=== PATIENT | male | born 1965 | race Two or more races ===

== ENCOUNTER → 2023-06-08 10:34 | Outpatient (REF) | payer OTHER, SELFPAY ==
--- NOTE | 2023-06-08 10:48 | CA_ITS ---
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 There is mildly increased left ventricular wall thickness. The left ventricular systolic function is low normal. The visually estimated ejection fraction is between 50-55%. - The basal inferior and mid inferior segments are akinetic. - Normal right ventricular cavity size and systolic function. Findings Left Ventricle Normal left ventricular cavity size. There is mildly increased left ventricular wall thickness. The left ventricular systolic function is low normal. The visually estimated ejection fraction is between 50-55%. There is evidence of regional wall motion abnormalities. Diastolic function is normal for age. Wall Motion Rest Echo Findings The basal inferior and mid inferior segments are akinetic. Right Ventricle Normal right ventricular cavity size and systolic function. Atria The left atrium is normal in size. The right atrium is normal in size. Aortic Valve There is a normal trileaflet aortic valve. There is no aortic valve stenosis. There is no aortic valve regurgitation. Mitral Valve Normal mitral valve structure and function. There is trace mitral valve regurgitation. There is no mitral valve stenosis. Pulmonic Valve The pulmonic valve is normal. There is no pulmonic valve regurgitation. Tricuspid Valve Normal tricuspid valve structure. There is no tricuspid valve regurgitation. Normal right atrial pressure. There is no evidence of pulmonary hypertension. Great Vessels All visible segments of the aorta are normal in size. The visualized portions of the pulmonary artery and branches are normal. Venous The inferior vena cava is normal in size and collapses greater than 50% with inspiration. Pericardium/Pleural There is no evidence of pericardial effusion. Prior Study Comparison No prior study available for comparison. Measurements 2D Linear Measurements IVSd: 1.12 0.6-0.9/0.6-1.0 cm LVIDd: 4.63 3.9-5.3/4.2-5.9 cm LVIDd Index: 2.24 2.4-3.2/2.2-3.1 cm/m2 LVIDs: 3.45 2.0-3.6 cm LVPWd: 1.19 0.7-1.1 cm LA Diam: 3.20 2.7-3.8/3.0-4.0 cm LAIDs Index: 1.55 1.5-2.3 cm/m2 LV Mass: 244.40 67-162/88-224 g LV Mass Index: 118.07 43-95/49-115 g/m2 LVOT Diam: 2.20 3.0+(-)1.3 cm 2D Systolic Function EF 4C: 42.90 >55% EF 2C: 40.10 >55% EF BiP: 42.70 >55% Mitral Valve MV Pk E: 0.48 MV PK A: 0.66 MV Decel Time: 357.00 E/A: 0.70 E'Lateral: 6.85 E'Medial: 6.42 E/E' Med: 7.50 E/E' Lat: 7.00 PHT: 105.00 MVA PHT: 2.10 Decel [place]: 1.34 Aortic Valve AoV Pk Ashutosh: 1.05 AoV Mn Ashutosh: 0.85 AoV VTI: 0.21 AoV Pk Grad: 4.00 Aov Mn Grad: 3.00 NOMAN Cont.VTI: 2.81 LVOT LVOT Pk Ashutosh: 0.78 LVOT Mn Ashutosh: 0.55 LVOT VTI: 0.15 LVOT Pk Grad: 2.00 LVOT Mn Grad: 1.00 LVOT Diam: 2.20 LVOT Area: 3.80 Diastolic Function MV Pk E: 0.48 MV Pk A: 0.66 E/A: 0.70 E'Medial: 6.42 E/E' Med: 7.50 E' Laterial: 6.85 E/E' Lat: 7.00 Right Ventricle TAPSE (mm): 20.00 TVS' Ashutosh: 10.10 Tricuspid Valve TR Pk Ashutosh: 1.76 TR Pk Grad: 12.00 RA Press: 3.00 RVSP: 15.00 Great Vessels Aorta Sinus of Valsalva: 3.50 2.0-3.5 cm Ao Asc: 3.10 2.1-3.4 cm Pulmonary Valve PV Pk Ashutosh: 1.00 Peak PV Grad: 4.00 Updated in Other Vendor System with Status of Final Burke Wynn MD electronically signed on 06/10/2023 3:18:00 PM with status of Final
== END ==
LOC: HO.CARD 10:34
PROVIDERS: Visit Provider Internal Medicine
DX: I25.118 Atherosclerotic heart disease of native coronary artery with other forms of angina pectoris (principal)
CPT/HCPCS: 93306

== ENCOUNTER → 2023-06-08 10:48 | Outpatient (BNV) | payer OTHER, SELFPAY | PROVIDERS: Visit Provider Internal Medicine Cardiovascular Disease | DX: I25.118 Atherosclerotic heart disease of native coronary artery with other forms of angina pectoris (principal) | CPT/HCPCS: 93306 ==